=== PATIENT | female | born 1985 | race Caucasian/White ===

== ENCOUNTER 2023-03-04 12:15 | Emergency (ER) | payer BC, OTHER, MEDICARE, SELFPAY ==
[2023-03-04 12:29] VITALS: BP 177/82; PULSE 78; RESP 16; TEMP 36.5; O2SAT 99
--- NOTE | 2023-03-04 12:31 | ED.LOWEXIN ---
HPI - Extremity Injury (Lower) General Chief Complaint: Extremity Injury, Lower Stated Complaint: R FOOT PAIN Source: patient and RN notes reviewed History of Present Illness HPI Narrative: 37 yo F presents to urgent care with visitor at side. Pt states she has been having right lateral foot pain since Wednesday. Pt states she is unable to bear weight on the foot b/c of pain. Pt denies any known injury. Denies any numbness, tingling, or leg pain. Pt has been taking Tylenol at home. Related Data Home Medications Medication Instructions Recorded Confirmed amlodipine 5 mg tablet mg 03/04/23 bumetanide 1 mg tablet mg 03/04/23 epinephrine 0.3 mg/0.3 mL 03/04/23 injection, auto-injector (EpiPen 2-Brendan) fexofenadine 180 mg tablet mg 03/04/23 mycophenolate sodium 360 mg mg PO 03/04/23 tablet,delayed release ondansetron 4 mg disintegrating mg 03/04/23 tablet prednisone 5 mg tablet mg 03/04/23 tacrolimus 1 mg capsule, mg 03/04/23 immediate-release Allergies Allergy/AdvReac Type Severity Reaction Status Date / Time cefaclor Allergy Unknown Rash Verified 03/04/23 12:51 clindamycin Allergy Unknown generalized Verified 05/01/20 13:54 utricaria erythromycin base Allergy Unknown Skin Verified 05/01/20 13:54 Reaction sulfamethizole Allergy Unknown Rash Verified 03/04/23 12:51 tobramycin Allergy Unknown Unknown Verified 03/04/23 12:51 dexamethasone Allergy Unknown Verified 03/04/23 12:51 iron dextran complex Allergy Unknown Verified 03/04/23 12:51 sulfamethoxazole Allergy Unknown Verified 03/04/23 12:51 trimethoprim Allergy Unknown Verified 03/04/23 12:51 BEE STINGS Allergy Severe Rash Uncoded 05/01/20 13:54 Contrast Media Allergy Mild Unknown Uncoded 03/04/23 12:51 TOBRAMYCIN SULFATE Allergy Unknown Uncoded 03/04/23 12:51 Review of Systems Review of Systems: CONSTITUTIONAL: Denies fever, chills, or sweats. EYES: Denies visual changes, redness, or discharge. ENT: Denies otalgia and sore throat CARDIOVASCULAR: Denies chest pain, palpitations, or edema. RESPIRATORY: Denies cough or dyspnea. GASTROINTESTINAL: Denies abdominal pain, nausea, vomiting, or diarrhea. GENITOURINARY: Denies dysuria or hematuria. SKIN: Denies rash or itching. MUSCULOSKELETAL: Right foot pain NEUROLOGIC: Denies headache, numbness, or weakness. Pertinent positives per HPI. [facility] Family History Family History (System 05/01/20 @ 13:54 by Hortensia Jaimes) Grandparent Family history of glaucoma Family history of pancreatic cancer Family history of malignant neoplasm of breast Father Hypertension Sibling Asthma Mother Family history of elevated blood lipids Social History Social History (System 05/01/20 @ 13:54 by Hortensia Jaimes) Smoking status: Never smoker Alcohol intake: never Comments At the time of my signature, I reviewed and agree with the nursing past medical, surgical, social, and family history. There is no relevant family history pertinent to the patient complaint. Exam Narrative: GENERAL: This is a well-nourished, well-developed patient, in no apparent distress. HEAD: normocephalic, atraumatic. EYES: Sclera clear/white. Vision is grossly intact. EARS: External ears normal, auditory canals clear and without drainage. Hearing grossly intact. NOSE: External nose normal with no obvious nasal discharge, nares without redness, no rhinorrhea. THROAT: Mucous membranes moist, posterior pharynx clear. NECK: Neck supple, non-tender without lymphadenopathy, masses or thyromegaly. CARDIOVASCULAR: Regular rate RESPIRATORY: No respiratory distress SKIN: warm, intact with no suspicious lesions or rash, good texture and turgor. NEURO: awake, alert, and oriented to person, place and time. There were no obvious focal neurologic abnormalities. EXTREMITIES: Right lateral press and blow machine tender, edematous. Small area of mild bruise noted. Course Course Level of Care: Express Care Visit Vi
[2023-03-04 12:43] VITALS: BP 177/82; PULSE 78; RESP 16; TEMP 36.5; O2SAT 99
== END 2023-03-04 13:08 | disposition home or self-care (01) ==
PROVIDERS: Emergency Provider Nurse Practitioner Family
DX: S93.601A Unspecified sprain of right foot, initial encounter (principal); X58.XXXA Exposure to other specified factors, initial encounter; E78.00 Pure hypercholesterolemia, unspecified; I10 Essential (primary) hypertension; M10.9 Gout, unspecified; E03.9 Hypothyroidism, unspecified; D68.2 Hereditary deficiency of other clotting factors; Z94.0 Kidney transplant status; Z95.2 Presence of prosthetic heart valve
CPT/HCPCS: 73630; 99213; G0463

== ENCOUNTER 2023-03-07 19:07 | Emergency (ER) | payer BC, OTHER, MEDICARE, SELFPAY ==
--- NOTE | ~2023-03-07 | XR_ITS ---
EXAMINATION: XR tibia fibula LT 2V INDICATION: Left leg pain TECHNIQUE: Two views of the left tibia and fibula are obtained on three radiographs. COMPARISON: 02/27/2010 FINDINGS: Bone alignment is normal. There is no fracture. There is anterior soft tissue swelling over lying the distal leg. Calcified atherosclerosis is noted. IMPRESSION: 1. Soft tissue swelling of the distal leg without underlying osseous abnormality. Reviewed, dictated and finalized at location F. IMPRESSION: 1. Soft tissue swelling of the distal leg without underlying osseous abnormalit y.
[2023-03-07 19:21] VITALS: BP 138/79; PULSE 75; RESP 16; TEMP 36.5; O2SAT 99
[2023-03-07 19:23] VITALS: BP 138/79; PULSE 75; RESP 16; TEMP 36.5; O2SAT 99
--- NOTE | 2023-03-07 19:28 | ED.LOWEXIN ---
HPI - Extremity Injury (Lower) General Chief Complaint: Extremity Injury, Lower Stated Complaint: lt skaggs injury Time Seen by Provider: 03/07/23 19:22 Source: patient, RN notes reviewed and old records reviewed Mode of arrival: ambulatory Limitations: no limitations History of Present Illness HPI Narrative: 37 year old female accompanied by spouse with complaints of hitting her left anterior lower leg on stair edges with swelling and bruising to her anterior left lower leg Patient was seen on for injury to her right foot and had been on crutches. Patient was trying to walk up stairs with crutches and hit anterior aspect of left lower leg, patient is concerned with amount of swelling and bruising to her lower left leg, Patient states that she has been elevating her left leg and using ice and application of levi wrap. MD complaint: leg injury (anterior lower leg) Onset (ago): day(s) (3) Type of Injury: blunt Place: home Severity scale (1-10): 2 Exacerbating factors: weight bearing and palpation Treatments prior to arrival: cold therapy and other (levi wrap ) Related Data Home Medications Medication Instructions Recorded Confirmed amlodipine 5 mg tablet 5 mg PO DAILY 03/04/23 03/07/23 bumetanide 1 mg tablet 3 mg PO DAILY 03/04/23 03/07/23 carvedilol 25 mg tablet 25 mg PO BID 03/04/23 03/07/23 cetirizine 10 mg tablet (Zyrtec) 10 mg PO DAILY 03/04/23 03/07/23 cholecalciferol (vitamin D3) 50 50 mcg PO DAILY 03/04/23 03/07/23 mcg (2,000 unit) capsule (Vitamin D3) clobetasol 0.05 % topical cream 1 applic topical DAILY 03/04/23 03/07/23 diphenhydramine HCl 25 mg capsule 25 mg PO HS PRN Allergy Symptoms 03/04/23 03/07/23 docosahexaenoic acid 100 mg capsule 100 mg PO TID 03/04/23 03/07/23 eculizumab 300 mg/30 mL 300 mg IV ONCE 03/04/23 03/07/23 intravenous solution epinephrine 0.3 mg/0.3 mL 0.3 mg IM USEASDIRECTD PRN 03/04/23 03/07/23 injection, auto-injector (EpiPen Allergic Reaction 2-Brendan) ferrous sulfate 324 mg (65 mg 324 mg PO BID 03/04/23 03/07/23 iron) tablet,delayed release fexofenadine 180 mg tablet 180 mg PO DAILY 03/04/23 03/07/23 olopatadine 0.2 % eye drops 1 drp EACH EYE DAILY 03/04/23 03/07/23 prednisone 5 mg tablet 5 mg PO DAILY 03/04/23 03/07/23 sumatriptan succinate 50 mg tablet See Rx Instructions .Route .COMPLEX 03/04/23 03/07/23 tacrolimus 1 mg capsule, 1 mg PO BID 03/04/23 03/07/23 immediate-release topiramate 50 mg tablet 50 mg PO DAILY 03/04/23 03/07/23 warfarin 1 mg tablet 3 mg PO DAILY 03/04/23 03/07/23 warfarin 1 mg tablet 4 mg PO DAILY 03/04/23 03/07/23 ezetimibe 10 mg tablet 10 mg PO DAILY 03/07/23 03/07/23 hydralazine 50 mg tablet 50 mg PO DIRECTED 03/07/23 03/07/23 levothyroxine 25 mcg tablet 25 mcg PO DAILY 03/07/23 03/07/23 potassium chloride 10 mEq meq PO 03/07/23 tablet,extended release pravastatin 20 mg tablet 20 mg PO DAILY 03/07/23 03/07/23 Allergies Allergy/AdvReac Type Severity Reaction Status Date / Time cefaclor Allergy Unknown Rash Verified 03/07/23 19:14 clindamycin Allergy Unknown generalized Verified 03/07/23 19:14 utricaria erythromycin base Allergy Unknown Skin Verified 03/07/23 19:14 Reaction sulfamethizole Allergy Unknown Rash Verified 03/07/23 19:14 tobramycin Allergy Unknown Unknown Verified 03/07/23 19:14 dexamethasone Allergy Unknown Verified 03/07/23 19:14 iron dextran complex Allergy Unknown Verified 03/07/23 19:14 sulfamethoxazole Allergy Rash Verified 03/07/23 19:14 trimethoprim Allergy Rash Verified 03/07/23 19:14 BEE STINGS Allergy Severe Rash Uncoded 03/07/23 19:14 Contrast Media Allergy Mild Unknown Uncoded 03/04/23 12:51 TOBRAMYCIN SULFATE Allergy Unknown Uncoded 03/04/23 12:51 Review of Systems Review of Systems: CONSTITUTIONAL: Denies fever, chills, or sweats. EYES: Denies visual changes, redness, or discharge. ENT: Denies rhinorrhea, congestion, sore throat, or otalgia. CARDIOVASCULAR: Denies chest pain, palpitations, or edema.
== END 2023-03-07 20:05 | disposition home or self-care (01) ==
PROVIDERS: Emergency Provider Registered Nurse
DX: S80.12XA Contusion of left lower leg, initial encounter (principal); W22.09XA Striking against other stationary object, initial encounter; I10 Essential (primary) hypertension; Z95.2 Presence of prosthetic heart valve; Z94.0 Kidney transplant status
CPT/HCPCS: 73590; 99213; G0463

== ENCOUNTER 2024-03-30 09:44 | Emergency (ER) | payer OTHER, BC, SELFPAY ==
[2024-03-30 09:46] VITALS: BP 202/88; PULSE 62; RESP 16; TEMP 36.6; O2SAT 100
[2024-03-30 11:58] LABS: Alanine Aminotransferase 22 U/L (6-35); Albumin Level 4.2 g/dL (3.5-5.1); Alkaline Phosphatase 57 U/L (38-126); Anion Gap 11 mmol/L (4-12); Aspartate Amino Transferase 25 U/L (14-36); Bilirubin,Total 0.6 mg/dL (0.2-1.3); Blood Urea Nitrogen 34 mg/dL (7-17); Calcium 9.1 mg/dL (8.4-10.2); Carbon Dioxide 18 mmol/L (22-30); Chloride 110 mmol/L (98-107); Estimated CRCL calculation 45 ml/min; Estimated Glomerular Filt Rate 26; Glucose 129 mg/dL (65-110); Lipase 95 U/L (23-300); Potassium 4.1 mmol/L (3.4-5.0); Sodium 139 mmol/L (137-145)
--- NOTE | 2024-03-30 12:44 | ED.ABDPAIN ---
HPI - Abdominal Pain General Chief Complaint: Abdominal Pain Stated Complaint: ABD pain Time Seen by Provider: 03/30/24 11:57 Source: patient and family (mother) Mode of arrival: ambulatory Limitations: no limitations History of Present Illness HPI narrative: Patient presents with epigastric abdominal pain that started last night. She has intermittently been nauseated and had 1 episode of NBNB emesis this morning. Pain is 5 out of 10 in severity. She has a history of acid reflux for which she is on lansoprozole. She also trialed pepto and GasX. Pain is better if she is hunched over. She took Tylenol at 3am. No sick contacts. Last bowel movement yesterday. No diarrhea or bloody stools but she does chronically have constipation intermittently. She has had some associated chest pain which came on after the abdominal pain. No vaginal bleeding. Irregular menses with occasional spotting in the setting of an IUD so unclear LMP. She doesn't have an appetite. RANDI 11:30pm. Does not use marijuana and denies alcohol. She has a history of kidney transplant x2. 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 Patient is chronically on prednisone and tacrolimus. She follows up with her transplant surgeon Dr Aguirre and employment advisor every 6 months. She states her baseline creatinine has been 1.5-1.7. She has a PCP. Related Data Home Medications Medication Instructions Recorded Confirmed amlodipine 5 mg tablet 5 mg PO DAILY 03/04/23 03/07/23 bumetanide 1 mg tablet 3 mg PO DAILY 03/04/23 03/07/23 carvedilol 25 mg tablet 25 mg PO BID 03/04/23 03/07/23 cetirizine 10 mg tablet (Zyrtec) 10 mg PO DAILY 03/04/23 03/07/23 cholecalciferol (vitamin D3) 50 50 mcg PO DAILY 03/04/23 03/07/23 mcg (2,000 unit) capsule (Vitamin D3) clobetasol 0.05 % topical cream 1 applic topical DAILY 03/04/23 03/07/23 diphenhydramine HCl 25 mg capsule 25 mg PO HS PRN Allergy Symptoms 03/04/23 03/07/23 docosahexaenoic acid 100 mg capsule 100 mg PO TID 03/04/23 03/07/23 eculizumab 300 mg/30 mL 300 mg IV ONCE 03/04/23 03/07/23 intravenous solution epinephrine 0.3 mg/0.3 mL 0.3 mg IM USEASDIRECTD PRN 03/04/23 03/07/23 injection, auto-injector (EpiPen Allergic Reaction 2-Brendan) ferrous sulfate 324 mg (65 mg 324 mg PO BID 03/04/23 03/07/23 iron) tablet,delayed release fexofenadine 180 mg tablet 180 mg PO DAILY 03/04/23 03/07/23 olopatadine 0.2 % eye drops 1 drp EACH EYE DAILY 03/04/23 03/07/23 prednisone 5 mg tablet 5 mg PO DAILY 03/04/23 03/07/23 sumatriptan succinate 50 mg tablet See Rx Instructions .Route .COMPLEX 03/04/23 03/07/23 tacrolimus 1 mg capsule, 1 mg PO BID 03/04/23 03/07/23 immediate-release topiramate 50 mg tablet 50 mg PO DAILY 03/04/23 03/07/23 warfarin 1 mg tablet 3 mg PO DAILY 03/04/23 03/07/23 warfarin 1 mg tablet 4 mg PO DAILY 03/04/23 03/07/23 ezetimibe 10 mg tablet 10 mg PO DAILY 03/07/23 03/07/23 hydralazine 50 mg tablet 50 mg PO DIRECTED 03/07/23 03/07/23 levothyroxine 25 mcg tablet 25 mcg PO DAILY 03/07/23 03/07/23 potassium chloride 10 mEq meq PO 03/07/23 tablet,extended release pravastatin 20 mg tablet 20 mg PO DAILY 03/07/23 03/07/23 Allergies Allergy/AdvReac Type Severity Reaction Status Date / Time cefaclor Allergy Unknown Rash Verified 03/30/24 09:49 clindamycin Allergy Unknown generalized Verified 03/30/24 09:49 utricaria erythromycin base Allergy Unknown Skin Verified 03/30/24 09:49 Reaction sulfamethizole Allergy Unknown Rash Verified 03/30/24 09:49 tobramycin Allergy Unknown Unknown Verified 03/30/24 09:49 dexamethasone Allergy Unknown Verified 03/30/24 09:49 iron dextran complex Allergy Unknown Verified 03/30/24 09:49 sulfamethoxazole Allergy Rash Verified 03/30/24 09:49 trimethoprim Allergy Rash Verified 03/30/24 09:49 BEE STINGS Allergy Severe Rash Uncoded 03/30/24 09:49 Contrast Media Allergy Mild Unknown Uncoded 03/30/24 09:49 TOBRAMYCIN SULFATE Allergy
[2024-03-30 12:52] LABS: Basophils Absolute Auto 0.1 K/mm3 (0.0-0.1); Basophils Percent Auto 0.6 % (0.2-1.2); Eosinophils Absolute Auto 0.2 K/mm3 (0-0.3); Hematocrit 41.7 % (37.0-47.0); Hemoglobin 13.4 g/dL (12.0-15.0); Immature Granulocyte Absolute 0.13 K/mm3 (0.00-0.031); Immature Granulocyte Percent A 0.9 % (0-0.5); Lymphocytes Absolute Auto 0.95 K/mm3 (0.9-3.2); Lymphocytes Percent Auto 6.6 % (18.3-44.2); Mean Corpuscular HGB Conc 32.1 g/dl (32-36); Mean Corpuscular Hemoglobin 28.4 pg (26-34); Mean Corpuscular Volume 88.3 fl (80-100); Mean Platelet Volume 10.4 fl (7.4-10.4); Monocytes Absolute Auto 0.8 K/mm3 (0.1-0.6); Monocytes Percent Auto 5.2 % (2.6-8.5); Neutrophils Absolute Auto 12.3 K/mm3 (1.3-6.7); Neutrophils Percent Auto 85.7 % (45.5-73.1); Platelet Count Result 247 k/mm3 (150-375); Red Blood Count 4.72 M/mm3 (4.2-5.4); Red Cell Distribution Width 14.6 % (11.5-14.5); White Blood Count 14.4 K/mm3 (4.5-10.0)
--- NOTE | 2024-03-30 12:52 | ECG_ITS ---
SEE SCANNED COPY FOR CONFIRMED REPORT MTDD
[2024-03-30] MEDS: SODIUM CHLORIDE 0.9% IV 1,000 ML 999 ML IV CONT (12:57)
[2024-03-30] MEDS: ONDANSETRON INJ 4 MG/2 ML VIAL IV PUSH (12:57)
[2024-03-30 13:01] LABS: Appearance Urine Clear (Clear); Bilirubin Urine Negative (Negative); Blood Urine Negative (Negative); Color Urine Yellow (Yellow); Glucose Urine UA Negative (Negative); Ketones Urine Negative (Negative); Leukocyte Esterase Ur Negative LEU/UL (Negative); Nitrate Urine Negative (Negative); Protein Urine 1+ mg/dL (Negative); Specific Grav Ur 1.019 (1.001-1.035); Urobilinogen Urine 0.2 mg/dL (<2.0); pH Urine 5.5 (5.0-9.0)
[2024-03-30 13:04] LABS: Add Urine Microscopic? NO
[2024-03-30] MEDS: BELLADONNA ALK/PHENOB ELIX 10 ML, MAG HYDROX/ALUMINUM HYD/SIMETH 30 ML, LIDOCAINE HCL 2... PO (13:06)
[2024-03-30 15:21] VITALS: BP 167/75; PULSE 63; RESP 20; O2SAT 99
[2024-03-30 15:39] LABS: Troponin I < 0.012 ng/mL (0.000-0.034)
[2024-03-30 15:58] LABS: Influenza A QL RT-PCR Negative (Negative); Influenza B QL RT-PCR Negative (Negative); SARS-CoV-2 RNA PCR Negative (Negative)
--- NOTE | 2024-03-30 16:09 | ECG_ITS ---
SEE SCANNED COPY FOR CONFIRMED REPORT MTDD
[2024-03-30 16:24] LABS: Anion Gap 7 mmol/L (4-12); Blood Urea Nitrogen 33 mg/dL (7-17); Calcium 9.1 mg/dL (8.4-10.2); Carbon Dioxide 21 mmol/L (22-30); Chloride 111 mmol/L (98-107); Estimated CRCL calculation 47 ml/min; Estimated Glomerular Filt Rate 28; Glucose 148 mg/dL (65-110); Potassium 4.6 mmol/L (3.4-5.0); Sodium 139 mmol/L (137-145)
[2024-03-30 16:36] LABS: Troponin I < 0.012 ng/mL (0.000-0.034)
[2024-03-30] MEDS: LACTATED RINGERS 1,000 ML 999 ML IV CONT (17:39)
[2024-03-30 18:47] VITALS: BP 181/79; PULSE 59; RESP 16; O2SAT 100
== END 2024-03-30 19:09 | disposition home or self-care (01) ==
PROVIDERS: Emergency Provider Student in an Organized Health Care Education/Training Program
DX: N17.9 Acute kidney failure, unspecified (principal); I12.9 Hypertensive chronic kidney disease with stage 1 through stage 4 chronic kidney disease, or unspecified chronic kidney disease; N18.9 Chronic kidney disease, unspecified; R10.13 Epigastric pain; R11.2 Nausea with vomiting, unspecified; D59.39 Other hemolytic-uremic syndrome; Z94.0 Kidney transplant status; Z20.822 Contact with and (suspected) exposure to COVID-19; K21.9 Gastro-esophageal reflux disease without esophagitis; Z95.2 Presence of prosthetic heart valve; Z79.01 Long term (current) use of anticoagulants; R94.31 Abnormal electrocardiogram [ECG] [EKG]
CPT/HCPCS: 36415; 80048; 80053; 81003; 81025; 83690; 84484; 85025; 87636; 93005; 96361; 96374; 99284; A9270; J2405; J7030; J7120